=== PATIENT | female | born 1965 | race Caucasian/White ===

== ENCOUNTER → 2016-07-17 | Outpatient (CLI) | payer MEDICARE, OTHER ==
[2016-07-21 03:02] LABS: Creatinine Urine Random 121.5 mg/dL (20.0-320.0)
== END | disposition home or self-care (01) ==
LOC: LABWHC1 12:03
PROVIDERS: ATTEND Internal Medicine Endocrinology, Diabetes & Metabolism
DX: M80.00XA Age-related osteoporosis with current pathological fracture, unspecified site, initial encounter for fracture (principal)
CPT/HCPCS: 36415; 82523

== ENCOUNTER → 2016-07-22 | Outpatient (CLI) | payer MEDICARE, OTHER ==
[2016-08-03 10:55] LABS: Mis test requested (Blood) CTX
== END | disposition home or self-care (01) ==
LOC: LABWHC1 10:52
PROVIDERS: ATTEND Internal Medicine Endocrinology, Diabetes & Metabolism
DX: M80.00XA Age-related osteoporosis with current pathological fracture, unspecified site, initial encounter for fracture (principal)
CPT/HCPCS: 36415; 82523

== ENCOUNTER → 2016-11-30 | Outpatient (CLI) | payer MEDICARE, OTHER ==
[2016-12-01 14:22] LABS: Mis test requested (Blood) CTX
[2016-12-03 21:53] LABS: Creatinine Urine Random 71.7 mg/dL (20.0-320.0)
== END | disposition home or self-care (01) ==
LOC: LABWHC1 09:34
PROVIDERS: ATTEND Internal Medicine Endocrinology, Diabetes & Metabolism
DX: M80.00XA Age-related osteoporosis with current pathological fracture, unspecified site, initial encounter for fracture (principal)
CPT/HCPCS: 36415; 82523

== ENCOUNTER → 2018-04-04 | Outpatient (CLI) | payer MEDICARE, OTHER ==
[2018-04-04 14:45] LABS: ALT 21 U/L (9-52); AST 21 U/L (14-36); Cholesterol 256 mg/dL (<200); HDL Cholesterol 68 mg/dL (40-60); LDL Cholesterol,Calculated 162 mg/dL (0-99); Triglycerides 128 mg/dL (<150)
== END | disposition home or self-care (01) ==
LOC: LABWHC1 13:02
PROVIDERS: ATTEND Nurse Practitioner Adult Health
DX: E78.2 Mixed hyperlipidemia (principal)
CPT/HCPCS: 36415; 80061; 84450; 84460

== ENCOUNTER → 2018-04-15 | Outpatient (CLI) | payer MEDICARE, OTHER ==
--- NOTE | 2018-04-15 16:18 | XR ---
EXAMINATION TYPE: XR chest 2V DATE OF EXAM: 04/15/2018 COMPARISON: 04/03/2018 HISTORY: COPD. Recent history of bronchitis. Concern for pneumonia. Shortness of breath. TECHNIQUE: Frontal and lateral views of the chest are obtained. FINDINGS: There is no focal air space opacity, pleural effusion, or pneumothorax seen. The cardiac silhouette size is within normal limits. Old healed right posterior mid rib fracture and left sided m id rib fractures that are also callus*seen. There is pulmonary hyperinflation and flattening of the d iaphragms on the lateral view. IMPRESSION: No acute cardiopulmonary process. Radiographic sequela of COPD.
== END | disposition home or self-care (01) ==
LOC: RADXRMAIN 15:48
DX: J44.1 Chronic obstructive pulmonary disease with (acute) exacerbation (principal)
CPT/HCPCS: 71046

== ENCOUNTER → 2019-06-03 | Outpatient (CLI) | payer MEDICARE, OTHER | END | disposition home or self-care (01) | LOC: CPPFTMAIN 12:59 | PROVIDERS: ATTEND Internal Medicine Critical Care Medicine | DX: J43.8 Other emphysema (principal) | CPT/HCPCS: 94060; 94726; 94729 ==

== ENCOUNTER → 2021-10-26 | Outpatient (CLI) | payer MEDICARE, OTHER ==
--- NOTE | 2021-10-27 06:58 | CT ---
EXAMINATION TYPE: CT chest wo con DATE OF EXAM: 10/26/2021 COMPARISON: CT chest abdomen and pelvis August 08, 2013 HISTORY: h/o SOB, COPD, COVID CT DLP: 405.5 mGycm. Automated Exposure Control for Dose Reduction was Utilized. TECHNIQUE: CT scan of the thorax is performed without IV contrast. High resolution protocol with 1 m m sequences obtained in 10 mm intervals in supine and prone technique. FINDINGS: LUNGS: Moderate underlying emphysematous changes redemonstrated greatest in the upper lungs with inte rval progression from [address] No significant peripheral fibrotic change or reticulation bilatera lly. No pleural effusion or pneumothorax seen. No bronchiectasis. No large masses. MEDIASTINUM: Lack of IV contrast and technique are noted to limit evaluation for mediastinal and abhishek cially hilar adenopathy. There are no definitive greater than 1 cm mediastinal lymph nodes. No car diomegaly . Trace pericardial effusion redemonstrated. OTHER: No additional significant abnormality is seen. IMPRESSION: Moderate underlying emphysematous change with some progression from 2014 study. No signif icant fibrosis. No acute pulmonary process.
== END | disposition home or self-care (01) ==
LOC: RADCTMAIN 18:05
PROVIDERS: ATTEND Internal Medicine Critical Care Medicine
DX: J43.9 Emphysema, unspecified (principal)
CPT/HCPCS: 71250

== ENCOUNTER → 2021-10-27 | Outpatient (CLI) | payer MEDICARE, OTHER ==
[2021-10-27 17:18] LABS: ABG Base Excess 3.1 mmol/L; ABG HCO3 28 mmol/L (21-25); ABG Oxygen Saturation 94.7 % (94-97); ABG PCO2 44 mmHg (35-45); ABG PH 7.41 (7.35-7.45); ABG PO2 81 mmHg (83-108); ABG TCO2 29 mmol/L (19-24); Allen Test Performed? Yes
== END | disposition home or self-care (01) ==
LOC: LABWHC1 16:27
PROVIDERS: ATTEND Internal Medicine Critical Care Medicine
DX: J44.9 Chronic obstructive pulmonary disease, unspecified (principal)
CPT/HCPCS: 36600; 82805

== ENCOUNTER → 2021-12-05 | Outpatient (CLI) | payer MEDICARE, OTHER ==
--- NOTE | 2021-12-06 17:36 | CA ---
Transthoracic Echo Report Name: Zahra Emmanuel Age: 56 Gender: F : 1965 Exam Date: 12/05/2021 13:50 Exam Location: [facility] Ht (in): 66 Wt (lb): 140 Ordering Physician: Tima Pink DO Attending/Referring Phys: Health Services Administrator Jenny Leahy RDCS Procedure CPT: Indications: J44.9 COPD Cardiac Hx: Severe end stage COPD Technical Quality: Fair Contrast 1: Total Dose (mL): Contrast 2: Total Dose (mL): MEASUREMENTS (Male / Female) Normal Values 2D ECHO LV Diastolic Diameter PLAX 3.7 cm 4.2 - 5.9 / 3.9 - 5.3 cm LV Systolic Diameter PLAX 1.5 cm IVS Diastolic Thickness 0.9 cm 0.6 - 1.0 / 0.6 - 0.9 cm LVPW Diastolic Thickness 1.0 cm 0.6 - 1.0 / 0.6 - 0.9 cm LV Relative Wall Thickness 0.5 RV Internal Dim ED PLAX 2.1 cm M-MODE Aortic Root Diameter MM 2.7 cm LA Systolic Diameter MM 2.5 cm LA Ao Ratio MM 0.9 MV E Point Septal Separation 1.9 cm AV Cusp Separation MM 1.6 cm DOPPLER AV Peak Velocity 93.9 cm/s AV Peak Gradient 3.5 mmHg MV Area PHT 3.5 cm??? MR Peak Velocity 120.6 cm/s MR Peak Gradient 5.8 mmHg Mitral E Point Velocity 51.8 cm/s Mitral A Point Velocity 48.6 cm/s Mitral E to A Ratio 1.1 MV Deceleration Time 217.2 ms TR Peak Velocity 97.3 cm/s TR Peak Gradient 3.8 mmHg Right Ventricular Systolic Press 8.8 mmHg FINDINGS Left Ventricle Normal Left ventricular size, wall thickness, systolic function with no obvious regional wall motion abnormalities. Normal Left ventricular diastolic filling pattern. Left ventricular ejection fraction is estimated at 50-55 %. Right Ventricle The right ventricle is normal in size and function. Right Atrium The right atrium is normal in size. Left Atrium The left atrium is normal in size. Mitral Valve Structurally normal mitral valve without significant stenosis or prolapse. There is trace mitral regurgitation. Aortic Valve Aortic valve not well visualized. Tricuspid Valve Structurally normal tricuspid valve without significant stenosis. Pulmonary artery systolic pressure is normal. Trace tricuspid regurgitation. Pulmonic Valve Structurally normal pulmonic valve without significant stenosis. There is no pulmonic regurgitation. Pericardium Small echo free space possible fat pad or a trivial effusion Aorta Normal aortic root dimension. CONCLUSIONS Normal LV size and systolic function. I aortic valve is not well-seen. No significant abnormality on Doppler exam. Previewed by: Dr. Espinoza Cobb MD (Electronically Signed) Final Date: 06 December 2021 17:35
== END | disposition home or self-care (01) ==
LOC: RADECHMAIN 13:44
PROVIDERS: ATTEND Internal Medicine Critical Care Medicine
DX: I08.1 Rheumatic disorders of both mitral and tricuspid valves (principal)
CPT/HCPCS: 93306

== ENCOUNTER → 2021-12-19 | Outpatient (CLI) | payer MEDICARE, OTHER ==
--- NOTE | 2021-12-20 00:27 | CT ---
EXAMINATION TYPE: CT chest wo con DATE OF EXAM: 12/19/2021 INDICATION: h/o COPD, zephyr protocol CT DLP: 440.7 mGy.cm Automated Exposure Control for Dose Reduction was Utilized. TECHNIQUE AND CONTRAST: CT scan of the chest without IV contrast administration, in inspiration and expiration. COMPARISON: CT dated 10/26/2021 FINDINGS: Advanced COPD changes with centrilobular emphysematous changes mainly involving the upper lobes. Diff use bronchial thickening which could be related to chronic bronchitis. Bilateral apical pulmonary fib rotic changes. Bronchial impaction is seen in the right lower lobe posterior segment. 3 mm right upper lobe nodule (image #[id number], series 4), stable since 2014 CT scan consistent with benign nodule. Minimal scarring at the posterior aspect of the right lower lobe superior segment. No honeyc ombing, bronchiectasis or peripheral pulmonary reticulations. Patent trachea and main bronchi. No pleural or pericardial effusion. No cardiomegaly. Scattered arter ial atherosclerotic calcifications. No pathologically enlarged lymph nodes in the chest. Grossly unre markable upper abdomen. No aggressive bone lesion. IMPRESSION: COPD changes as detailed above. No significant pulmonary fibrosis, bronchiectasis, honeycombing or pe ripheral reticulations. Other findings as described above.
== END | disposition home or self-care (01) ==
LOC: RADCTMAIN 11:39
PROVIDERS: ATTEND Internal Medicine Critical Care Medicine
DX: J44.9 Chronic obstructive pulmonary disease, unspecified (principal)
CPT/HCPCS: 71250

== ENCOUNTER → 2022-11-08 | Outpatient (CLI) | payer MEDICARE, OTHER ==
[2022-11-08 15:05] LABS: Basophils # (A) 0.07 X 10*3/uL (0.00-0.10); Eosinophils # (A) 0.15 X 10*3/uL (0.04-0.35); Eosinophils % (A) 2.1 %; HCT 39.2 % (37.2-46.3); HGB 12.2 g/dL (12.0-15.0); Immature Grans, Automated 0.1 %; Lymphocytes # (A) 2.59 X 10*3/uL (0.90-5.00); Lymphocytes % (A) 36.2 %; MCHC 31.1 g/dL (32.0-37.0); MCV 86.7 fL (80.0-97.0); Mean Platelet Volume 9.9 fL (9.5-12.2); Monocytes % (A) 11.2 %; NRBC Per 100 WBC 0 /100 WBCS (0.0-0.0); Neutrophils # (A) 3.53 X 10*3/uL (1.80-7.70); Neutrophils % (A) 49.4 %; Platelet Count 377 X 10*3/uL (140-440); RBC 4.52 X 10*6/uL (4.10-5.20); RDW 12.2 % (11.5-14.5); WBC 7.15 X 10*3/uL (4.50-10.00)
[2022-11-08 15:54] LABS: ALT 16 U/L (8-44); AST 18 U/L (13-35); African American GFR (CKD) 112.3 (60.0-200.0); Albumin 4.2 g/dL (3.8-4.9); Albumin/Globulin Ratio 1.75 (1.60-3.17); Alkaline Phosphatase 114 U/L (41-126); BUN/Creat Ratio 11.71 Ratio (12.00-20.00); Blood Urea Nitrogen 8.2 mg/dL (9.0-27.0); Calcium 9.1 mg/dL (8.7-10.3); Carbon Dioxide 25.1 mmol/L (20.0-27.5); Chloride 95 mmol/L (96-109); Chol/HDL Ratio 3.49 Ratio; Globulin 2.4 g/dL (1.6-3.3); Glucose 92 mg/dL (70-110); LDL Cholesterol,Calculated 163.6 mg/dL (0.0-131.0); Magnesium 2.2 mg/dL (1.5-2.4); Non-African American GFR(CKD) 96.9 (60.0-200.0); Potassium 4.7 mmol/L (3.5-5.5); Sodium 129 mmol/L (135-145); Total Bilirubin <0.15 mg/dL (0.30-1.20); Total Protein 6.6 g/dL (6.2-8.2)
== END | disposition home or self-care (01) ==
LOC: LABWHC1 09:36
PROVIDERS: ATTEND Nurse Practitioner Adult Health
DX: I10 Essential (primary) hypertension (principal); E78.5 Hyperlipidemia, unspecified; I47.29 Other ventricular tachycardia; R55 Syncope and collapse
CPT/HCPCS: 36415; 80053; 80061; 83036; 83735; 84443; 85025

== ENCOUNTER 2022-12-01 17:00 | Inpatient (IN) | payer MEDICARE, OTHER ==
[2022-12-01] MEDS ORDERED: SODIUM CHLORIDE 0.9% 1,000 ML IV STA (17:10)
[2022-12-01 17:40] LABS: Basophils % (A) 1 %; Eosinophils # (A) 0.1 k/uL (0-0.7); Eosinophils % (A) 1 %; HCT 36.7 % (34.0-46.0); HGB 12.4 gm/dL (11.4-16.0); Lymphocytes # (A) 1.8 k/uL (1.0-4.8); Lymphocytes % (A) 26 %; MCHC 33.9 g/dL (31.0-37.0); MCV 82.5 fL (80.0-100.0); Mean Platelet Volume 7.3; Monocytes # (A) 0.5 k/uL (0-1.0); Monocytes % (A) 7 %; Neutrophils # (A) 4.3 k/uL (1.3-7.7); Neutrophils % (A) 63 %; Platelet Count 337 k/uL (150-450); RBC 4.45 m/uL (3.80-5.40); RDW 12.3 % (11.5-15.5); WBC 6.8 k/uL (3.8-10.6)
--- NOTE | 2022-12-01 17:46 | ED ---
Recheck HPI - General Chief Complaint: Recheck/Abnormal Lab/Rx Stated Complaint: ENZO Time Seen by Provider: 12/01/22 17:10 Source: patient, RN notes reviewed, old records reviewed Mode of arrival: ambulatory Limitations: no limitations - History of Present Illness Initial Comments: This is a 57-year-old female to the emergency department for evaluation. Patient presents today for evaluation regards to low sodium. History of low sodium, outpatient lab showing sodium 126 prior to arrival patient feels short of breath weak and unwell. No new symptoms this is been ongoing for a few months. Symptoms began after stopping her daily steroid use. Patient also admits to shortness of breath and cough with underlying COPD at baseline MD Complaint: abnormal lab (Low sodium) -: unknown Returns Today for: Called Because of Abnormal Lab/Test Symptoms Since Prior Visit: no new symptoms Associated Symptoms: none Treatments Prior to Arrival: other (0) - Related Data Home Medications Medication Instructions Recorded Confirmed OXcarbazepine [Trileptal] 150 mg PO BID 01/26/16 12/01/22 traZODone HCL [Desyrel] 200 mg PO HS 01/26/16 12/01/22 Albuterol Inhaler [Ventolin Hfa 2 puff INHALATION RT-Q6H PRN 12/01/22 12/01/22 Inhaler] Cyclobenzaprine [Flexeril] 10 mg PO TID PRN 12/01/22 12/01/22 Fluticasone/Vilanterol [Breo 1 puff INHALATION RT-HS 12/01/22 12/01/22 Ellipta 200-25 Mcg Inhaler] HYDROcodone/APAP 10-325MG [[place] 1 tab PO TID PRN 12/01/22 12/01/22 10-325] Ipratropium [place] [Atrovent Hfa] 2 puff INHALATION RT-BID 12/01/22 12/01/22 Meloxicam [Mobic] 15 mg PO DAILY 12/01/22 12/01/22 Rosuvastatin [Crestor] 10 mg PO HS 12/01/22 12/01/22 hydrOXYzine pamoate 100 mg PO HS 12/01/22 12/01/22 Allergies Allergy/AdvReac Type Severity Reaction Status Date / Time ketorolac tromethamine Allergy Anaphylaxis Verified 12/01/22 20:54 [From Toradol] Penicillins Allergy Anaphylaxis Verified 12/01/22 20:54 sumatriptan [From Imitrex] Allergy Anaphylaxis Verified 12/01/22 20:54 sumatriptan succinate Allergy Anaphylaxis Verified 12/01/22 20:54 [From Imitrex] Review of Systems ROS Statement: Those systems with pertinent positive or pertinent negative responses have been documented in the HPI. ROS Other: All systems not noted in ROS Statement are negative. Past Medical History Past Medical History: COPD, Fibromyalgia Additional Past Medical History / Comment(s): HYPOTENSION. CHRONIC LOWER BACK PAIN. LOW SODIUM History of Any Multi-Drug Resistant Organisms: None Reported Past Surgical History: Appendectomy, Section, Hysterectomy Additional Past Surgical History / Comment(s): LAPROSCOPY X 2 (ENDOMETRIOSIS). Past Anesthesia/Blood Transfusion Reactions: No Reported Reaction Past Psychological History: Bipolar, Depression Smoking Status: Current every day smoker Past Alcohol Use History: None Reported Past Drug Use History: Marijuana - Past Family History Mother Family Medical History: Hyperlipidemia General Exam Limitations: no limitations General appearance: alert, in no apparent distress, anxious Head exam: Present: atraumatic, normocephalic, normal inspection Eye exam: Present: normal appearance, PERRL, EOMI. Absent: scleral icterus, conjunctival injection, periorbital swelling ENT exam: Present: normal exam, mucous membranes moist Neck exam: Present: normal inspection. Absent: tenderness, meningismus, lymphadenopathy Respiratory exam: Present: normal lung sounds bilaterally, wheezes, accessory muscle use, decreased breath sounds, prolonged expiratory. Absent: respiratory distress, rales, rhonchi, stridor Cardiovascular Exam: Present: regular rate, normal rhythm, normal heart sounds. Absent: systolic murmur, diastolic murmur, rubs, gallop, clicks GI/Abdominal exam: Present: soft, normal bowel sounds. Absent: distended, tenderness, guarding, rebound, rigid Extremities exam: Present: normal inspection, full ROM, normal capillary refill. Absent: tenderness, pedal edema, joint swelling, calf tenderness Back exam: Present: normal inspection Neurological exam: Present: alert, oriented X3, CN II-XII intact Psychiatric exam: Present: normal affect, normal mood Skin exam: Present: warm, dry, intact, normal color. Absent: rash Course Vital Signs 12/01/22 12/01/22 12/01/22 17:06 17:46 18:53 Temperature 98.2 F 97.6 F Pulse Rate 98 97 91 Respiratory 18 20 18 Rate Blood Pressure 148/95 133/101 112/83 O2 Sat by Pulse 95 98 98 Oximetry 12/01/22 12/01/22 12/02/22 19:59 22:06 01:32 Temperature Pulse Rate 74 80 75 Respiratory 18 18 18 Rate Blood Pressure 128/86 122/87 112/72 O2 Sat by Pulse 99 98 98 Oximetry 12/02/22 03:21 Temperature Pulse Rate 79 Respiratory 18 Rate Blood Pressure 104/82 O2 Sat by Pulse 100 Oximetry - Reevaluation(s) Reevaluation #1: 12/01/22 18:03 Medical record is reviewed 1 Reevaluation #2: 12/01/22 18:03 Patient symptoms are unchanged Reevaluation #3: 12/01/22 18:03 Patient informed results questions answered Reevaluation #4: 12/01/22 18:03 Was pt. sent in by a medical professional or institution? @ -no Did you speak to anyone other than the patient for history? @ -no Did you review nursing and triage notes? @ -agree Were old charts reviewed? @ -no Differential Diagnosis? @ -prior EKG interpreted by me (3pts min.)? @ -no X-rays interpreted by me (1pt min.)? @ -no CT interpreted by me (1pt min.)? @ -no U/S interpreted by me (1pt. min.)? @ -no What testing was considered but not performed? (CT, X-rays, U/S, labs)? Why? @ -no What meds were considered but not given? Why? @ -no Did you discuss the management of the patient with other professionals? @ -no Did you reconcile home meds? @ -no Was smoking cessation discussed for >3mins.? @ -no Was critical care preformed (if so, how long)? @ -no Were there social determinants of health that impacted care today? How? (Homelessness, low income, unemployed, alcoholism, drug addiction, transportation, low edu. Level, literacy, decrease access to med. care, shelter, rehab)? @ -no Was there de-escalation of care discussed even if they declined? (Discuss DNR or withdrawal of care, Hospice)? @ -no What co-morbidities impacted this encounter? (DM, HTN, Smoking, COPD, CAD, Cancer, CVA, Hep., AIDS, mental health diagnosis, sleep apnea, morbid obesity)? @ -none Was patient admitted / discharged? @ -57 female to the emergency department for evaluation, significantly low sodium and no patient. Also underlying COPD. Patient will be admitted for nephrology consultation regarding low sodium breathing treatments as needed. Admitted Undiagnosed new problem with uncertain prognosis? @ -no Drug Therapy requiring intensive monitoring for toxicity (Heparin, Nitro, Insulin, Cardizem)? @ -no Were any procedures done? @ -no Diagnosis/symptom? @ -Hyponatremia Acute, or Chronic, or Acute on Chronic? @ -Acute on chronic Uncomplicated (without systemic symptoms) or Complicated (systemic symptoms)? @ -uncomplicated Side effects of treatment? @ -no Exacerbation, Progression, or Severe Exacerbation] @ -no Poses a threat to life or bodily function? @ -Yes Significant low sodium Reevaluation #5: 12/01/22 18:03 Differential Weakness: Hypoglycemia, shock, sepsis, hyponatremia, anemia, infection, [place], ETOH, adverse medicine reaction, overdose, stroke, this is not meant to be an all-inclusive list. Medical Decision Making - Medical Decision Making 57 female to the emergency department for evaluation, significantly low sodium and no patient. Also underlying COPD. Patient will be admitted for nephrology consultation regarding low sodium breathing treatments as needed. - Lab Data Result diagrams: 12/02/22 05:57 12/02/22 04:04 Lab Results 12/01/22 12/01/22 12/01/22 Range/Units 17:26 17:26 17:26 WBC 6.8 (3.8-10.6) k/uL RBC 4.45 (3.80-5.40) m/uL Hgb 12.4 (11.4-16.0) gm/dL Hct 36.7 (34.0-46.0) % MCV 82.5 (80.0-100.0) fL MCH 28.0 (25.0-35.0) pg MCHC 33.9 (31.0-37.0) g/dL RDW 12.3 (11.5-15.5) % Plt Count 337 (150-450) k/uL MPV 7.3 Neutrophils % 63 % Lymphocytes % 26 % Monocytes % 7 % Eosinophils % 1 % Basophils % 1 % Neutrophils # 4.3 (1.3-7.7) k/uL Lymphocytes # 1.8 (1.0-4.8) k/uL Monocytes # 0.5 (0-1.0) k/uL Eosinophils # 0.1 (0-0.7) k/uL Basophils # 0.0 (0-0.2) k/uL Sodium 120 L (137-145) mmol/L Potassium 4.4 (3.5-5.1) mmol/L Chloride 88 L (98-107) mmol/L Carbon Dioxide 22 (22-30) mmol/L Anion Gap 10 mmol/L BUN 7 (7-17) mg/dL Creatinine 0.49 L (0.52-1.04) mg/dL Est GFR (CKD-EPI)AfAm >90 (>60 ml/min/1.73 sqM) Est GFR (CKD-EPI)NonAf >90 (>60 ml/min/1.73 sqM) Glucose 99 (74-99) mg/dL Calcium 8.7 (8.4-10.2) mg/dL Phosphorus 4.4 (2.5-4.5) mg/dL Magnesium 1.9 (1.6-2.3) mg/dL Total Bilirubin 0.3 (0.2-1.3) mg/dL AST 27 (14-36) U/L ALT 22 (4-34) U/L Alkaline Phosphatase 124 (38-126) U/L Total Protein 6.9 (6.3-8.2) g/dL Albumin 4.3 (3.5-5.0) g/dL Urine Color Light Yellow Urine Appearance Clear (Clear) Urine pH 6.0 (5.0-8.0) Ur Specific [place] 1.007 (1.001-1.035) Urine Protein Negative (Negative) Urine Glucose (UA) Negative (Negative) Urine Ketones Negative (Negative) Urine Blood Negative (Negative) Urine Nitrite Negative (Negative) Urine Bilirubin Negative (Negative) Urine Urobilinogen <2.0 (<2.0) mg/dL Ur Leukocyte Esterase Negative (Negative) Critical Care Time Critical Care Time: Yes Total Critical Care Time: 31 Disposition Clinical Impression: Hyponatremia, Weakness, COPD exacerbation Disposition: ADMITTED IP TO THIS HOSP Condition: Serious Is patient prescribed a controlled substance at d/c from ED?: No Time of Disposition: 20:00
[2022-12-01 17:54] LABS: ALT 22 U/L (4-34); AST 27 U/L (14-36); African American GFR (CKD) >90 (>60 ml/min/1.73 sqM); Albumin 4.3 g/dL (3.5-5.0); Alkaline Phosphatase 124 U/L (38-126); Anion Gap 10 mmol/L; Blood Urea Nitrogen 7 mg/dL (7-17); Calcium 8.7 mg/dL (8.4-10.2); Carbon Dioxide 22 mmol/L (22-30); Chloride 88 mmol/L (98-107); Glucose 99 mg/dL (74-99); Magnesium 1.9 mg/dL (1.6-2.3); Non-African American GFR(CKD) >90 (>60 ml/min/1.73 sqM); Phosphorus 4.4 mg/dL (2.5-4.5); Potassium 4.4 mmol/L (3.5-5.1); Sodium 120 mmol/L (137-145); Total Bilirubin 0.3 mg/dL (0.2-1.3); Total Protein 6.9 g/dL (6.3-8.2)
[2022-12-01 18:17] LABS: Appearance,Urine Clear (Clear); Bilirubin,Urine Negative (Negative); Blood,Urine Negative (Negative); Color,Urine Light Yellow; Glucose,Urine (UA) Negative (Negative); Ketones,Urine Negative (Negative); Leukocyte Esterase,Urine Negative (Negative); Nitrite,Urine Negative (Negative); Protein,Urine Negative (Negative); Specific Gravity,Urine 1.007 (1.001-1.035); Urobilinogen,Urine <2.0 mg/dL (<2.0)
[2022-12-01 18:57] VITALS: RESP 18; TEMP 97.6
[2022-12-01] MEDS ORDERED: NALOXONE 0.4 MG/ML 1 ML VIAL IV PRN (20:13)
[2022-12-01] MEDS ORDERED: MORPHINE SULFATE 4 MG/ML SYRINGE IVP STA (20:30)
[2022-12-01] MEDS ORDERED: ONDANSETRON 4 MG/2 ML VIAL IVP STA (20:39)
[2022-12-01 22:06] LABS: Creatinine,Urine Random 6.6 mg/dL
[2022-12-01] MEDS ORDERED: CYCLOBENZAPRINE 10 MG TAB PO PRN (23:30)
[2022-12-01] MEDS ORDERED: HYDROcodone/APAP 10-325MG 1 EACH TAB PO PRN (23:30)
--- NOTE | 2022-12-01 23:32 | P.HPIM ---
History of Present Illness H&P Date: 12/01/22 The patient is a 57-year-old female with a PMH of adrenal insufficiency, COPD, and fibromyalgia who presents to the emergency room for low sodium lab value. The patient reports that her PCP had ordered blood work which revealed a sodium of 126, and he subsequently advised her to go to the emergency room. Patient states that she was diagnosed with chronic hypotension roughly 12 years ago and was started on fludrocortisone. She continues to take as little cortisone until about 8 months ago when it was gradually tapered off after she developed tachycardia. She reports that roughly 1-2 months after halting the foot to cortisone, she began having episodes of syncope as well as periods of not feeling well. She reports that the syncope was occurring almost once weekly, preceded by lightheadedness, lasting for several minutes at a time, and she would have every other day episodes were she would have a sudden onset of nausea and lightheadedness when she would need to lay down, lasting for up to an hour at a time. She reports that these episodes, she would check her blood pressure and it would routinely be low with systolic 80s to 90s. She reports that her syncope symptoms are very similar to when she was previously initiated on fludrocortisone 12 years ago. She reports feeling at her baseline at the time of interview and had no active complaints. Denied experiencing chest discomfort, shortness of breath, palpitations, cough, nausea, vomiting, abdominal pain, diarrhea. In the emergency room, laboratory evaluation revealed a sodium of 120, chloride 88, potassium 4.4, creatinine 0.49. ED documentation reviewed and case discussed with ED provider. Review of systems: Pertinent positives and negatives as discussed in HPI, a complete review of systems was performed and all other systems are negative. Physical examination: Vital signs reviewed General: non toxic, no distress, appears at stated age, normal weight Derm: no unusual rashes/lesions, warm Head: atraumatic, normocephalic, symmetric Eyes: EOMI, no lid lag, anicteric sclera, pupils equal round reactive to light ENT: Nose and ears atraumatic Neck: No cervical lymphadenopathy, trachea midline, supple Mouth: no lip lesion, mucus membranes moist Cardiovascular: S1S2 reg, no murmur, positive dorsalis pedis pulse bilateral, no edema Lungs: CTA bilateral, no rhonchi, no rales, no accessory muscle use Abdominal: soft, nontender to palpation, no guarding Ext: muscle strength 5 out of 5 in all 4 extremities grossly, no gross muscle atrophy, no contractures, Neuro: CN II-XI grossly intact, no gross focal neuro deficits Psych: Alert, oriented, appropriate affect Assessment: Hypochloremic hyponatremia, suspect secondary to adrenal insufficiency (mineralocorticoid) Chronic conditions: COPD, fibromyalgia Imaging: None performed Data Review: In the emergency room, laboratory evaluation revealed a sodium of 120, chloride 88, potassium 4.4, creatinine 0.49. Plan: Obtain hyponatremia workup Status post 1 L of normal saline IV fluid in the emergency room Avoid overcorrection Patient may need to be restarted on fludrocortisone Consult Nephrology Monitor sodium levels q4h DVT prophylaxis: Lovenox The patient is admitted with an anticipated greater than 2 midnight stay for evaluation of hyponatremia CODE STATUS: Full Code Discussed with: Patient Anticipated discharge place: Home Past Medical History Past Medical History: COPD, Fibromyalgia Additional Past Medical History / Comment(s): HYPOTENSION. CHRONIC LOWER BACK PAIN. LOW SODIUM History of Any Multi-Drug Resistant Organisms: None Reported Past Surgical History: Appendectomy, Section, Hysterectomy Additional Past Surgical History / Comment(s): LAPROSCOPY X 2 (ENDOMETRIOSIS). Past Anesthesia/Blood Transfusion Reactions: No Reported Reaction Past Psychological History: Bipolar, Depression Smoking Status: Current every day smoker Past Alcohol Use History: None Reported Past Drug Use History: Marijuana - Past Family History Mother Family Medical History: Hyperlipidemia Medications and Allergies Home Medications Medication Instructions Recorded Confirmed Type OXcarbazepine [Trileptal] 150 mg PO BID 01/26/16 12/01/22 History traZODone HCL [Desyrel] 200 mg PO HS 01/26/16 12/01/22 History Albuterol Inhaler [Ventolin Hfa 2 puff INHALATION RT-Q6H PRN 12/01/22 12/01/22 History Inhaler] Cyclobenzaprine [Flexeril] 10 mg PO TID PRN 12/01/22 12/01/22 History Fluticasone/Vilanterol [Breo 1 puff INHALATION RT-HS 12/01/22 12/01/22 History Ellipta 200-25 Mcg Inhaler] HYDROcodone/APAP 10-325MG [[place] 1 tab PO TID PRN 12/01/22 12/01/22 History 10-325] Ipratropium [place] [Atrovent Hfa] 2 puff INHALATION RT-BID 12/01/22 12/01/22 History Meloxicam [Mobic] 15 mg PO DAILY 12/01/22 12/01/22 History Rosuvastatin [Crestor] 10 mg PO HS 12/01/22 12/01/22 History hydrOXYzine pamoate 100 mg PO HS 12/01/22 12/01/22 History Allergies Allergy/AdvReac Type Severity Reaction Status Date / Time ketorolac tromethamine Allergy Anaphylaxis Verified 12/01/22 20:54 [From Toradol] Penicillins Allergy Anaphylaxis Verified 12/01/22 20:54 sumatriptan [From Imitrex] Allergy Anaphylaxis Verified 12/01/22 20:54 sumatriptan succinate Allergy Anaphylaxis Verified 12/01/22 20:54 [From Imitrex] Physical Exam Vitals: Vital Signs Temp Pulse Resp BP Pulse Ox 12/01/22 22:06 80 18 122/87 98 12/01/22 19:59 74 18 128/86 99 12/01/22 18:53 97.6 F 91 18 112/83 98 12/01/22 17:46 97 20 133/101 98 12/01/22 17:06 98.2 F 98 18 148/95 95 Intake and Output 12/01/22 12/01/22 12/02/22 14:59 22:59 06:59 Other: Weight 56.699 kg Results CBC & Chem 7: 12/01/22 17:26 12/02/22 04:04 Labs: Abnormal Lab Results - Last 24 Hours (Table) 12/01/22 Range/Units 17:26 Sodium 120 L (137-145) mmol/L Chloride 88 L (98-107) mmol/L Creatinine 0.49 L (0.52-1.04) mg/dL
[2022-12-02] MEDS: MORPHINE SULFATE 4 MG/ML SYRINGE IV PRN ×2 (01:05→06:33)
[2022-12-02 01:09] LABS: African American GFR (CKD) >90 (>60 ml/min/1.73 sqM); Anion Gap 8 mmol/L; Blood Urea Nitrogen 5 mg/dL (7-17); Calcium 8.9 mg/dL (8.4-10.2); Carbon Dioxide 28 mmol/L (22-30); Chloride 96 mmol/L (98-107); Glucose 113 mg/dL (74-99); Non-African American GFR(CKD) >90 (>60 ml/min/1.73 sqM); Potassium 4.4 mmol/L (3.5-5.1); Sodium 132 mmol/L (137-145)
[2022-12-02] MEDS ORDERED: ONDANSETRON 4 MG/2 ML VIAL IVP ONE (02:39)
[2022-12-02] MEDS: LORazepam 2 MG/ML INJ IV PRN ×2 (03:17→03:19)
[2022-12-02 03:22] VITALS: BP 104/82; PULSE 79
[2022-12-02 04:50] LABS: ALT 20 U/L (4-34); AST 24 U/L (14-36); African American GFR (CKD) >90 (>60 ml/min/1.73 sqM); Albumin 3.6 g/dL (3.5-5.0); Albumin/Globulin Ratio 1.4; Alkaline Phosphatase 90 U/L (38-126); Anion Gap 5 mmol/L; Blood Urea Nitrogen 6 mg/dL (7-17); Calcium 8.2 mg/dL (8.4-10.2); Carbon Dioxide 28 mmol/L (22-30); Chloride 96 mmol/L (98-107); Globulin 2.5 g/dL; Glucose 115 mg/dL (74-99); Non-African American GFR(CKD) >90 (>60 ml/min/1.73 sqM); Sodium 129 mmol/L (137-145); Total Bilirubin 0.2 mg/dL (0.2-1.3); Total Protein 6.1 g/dL (6.3-8.2)
[2022-12-02 06:51] LABS: Basophils % (A) 0 %; Eosinophils # (A) 0.1 k/uL (0-0.7); Eosinophils % (A) 1 %; HCT 37.3 % (34.0-46.0); HGB 11.8 gm/dL (11.4-16.0); Lymphocytes # (A) 1.9 k/uL (1.0-4.8); Lymphocytes % (A) 31 %; MCH 27.4 pg (25.0-35.0); MCHC 31.7 g/dL (31.0-37.0); MCV 86.3 fL (80.0-100.0); Mean Platelet Volume 7.8; Monocytes # (A) 0.6 k/uL (0-1.0); Monocytes % (A) 10 %; Neutrophils # (A) 3.4 k/uL (1.3-7.7); Neutrophils % (A) 56 %; Platelet Count 320 k/uL (150-450); RBC 4.32 m/uL (3.80-5.40); RDW 12.4 % (11.5-15.5); WBC 6.1 k/uL (3.8-10.6)
[2022-12-02] MEDS ORDERED: SYMBICORT 160-4.5 MCG INHALER INHALATION SCH (08:00)
[2022-12-02] MEDS ORDERED: ENOXAPARIN 40 MG/0.4 ML SYRINGE SQ SCH (09:00)
[2022-12-02] MEDS ORDERED: OXcarbazepine 150 MG TAB PO SCH (09:00)
[2022-12-02] MEDS ORDERED: COSYNTROPIN 0.25 MG VIAL IVP ONE (10:28)
--- NOTE | 2022-12-02 10:32 | P.NPCON ---
History of Present Illness - Reason for Consult hyponatremia - History of Present Illness Reason for consultation: Hyponatremia History of present illness: Patient is a 57-year-old female seen in consultation for hyponatremia. Patient states she had blood work done at her primary care physician's office in sodium level came back at 126 this past Sunday. This was repeated yesterday and was again 126 and she was advised to go to the hospital. In the hospital here sodium initially was 120 and she received 1 L bolus of normal saline. Sodium improved to 132 and this morning was down to 129. Patient states her oral intake has been fair although she doesn't feel very hungry. She denies any vomiting or diarrhea but does admit to nausea. Patient states she was on fludrocortisone for hypotension in the past but was gradually tapered off and the last year due to tachycardia. Blood pressure is fairly stable this admission. Urine osmolality was low at 73 and urine sodium was less than 20. She does admit to drinking about 2-316 ounce bottles of water, 2 cups of coffee and one glass of juice daily. She denies any alcohol use. She denies any personal history of malignancy. Patient does admit to taking Mobic every day. Additionally she is also on trazodone and Trileptal. Vital signs are stable. General: No acute distress. HEENT: Head exam is unremarkable. LUNGS: No audible rhonchi or wheezes. HEART: Rate and Rhythm are regular. ABDOMEN: Nontender. EXTREMITITES: No edema. Past Medical History Past Medical History: COPD, Fibromyalgia Additional Past Medical History / Comment(s): HYPOTENSION. CHRONIC LOWER BACK PAIN. LOW SODIUM History of Any Multi-Drug Resistant Organisms: None Reported Past Surgical History: Appendectomy, Section, Hysterectomy Additional Past Surgical History / Comment(s): LAPROSCOPY X 2 (ENDOMETRIOSIS). Past Anesthesia/Blood Transfusion Reactions: No Reported Reaction Past Psychological History: Bipolar, Depression Smoking Status: Current every day smoker Past Alcohol Use History: None Reported Past Drug Use History: Marijuana - Past Family History Mother Family Medical History: Hyperlipidemia Medications and Allergies Home Medications Medication Instructions Recorded Confirmed Type OXcarbazepine [Trileptal] 150 mg PO BID 01/26/16 12/01/22 History traZODone HCL [Desyrel] 200 mg PO HS 01/26/16 12/01/22 History Albuterol Inhaler [Ventolin Hfa 2 puff INHALATION RT-Q6H PRN 12/01/22 12/01/22 History Inhaler] Cyclobenzaprine [Flexeril] 10 mg PO TID PRN 12/01/22 12/01/22 History Fluticasone/Vilanterol [Breo 1 puff INHALATION RT-HS 12/01/22 12/01/22 History Ellipta 200-25 Mcg Inhaler] HYDROcodone/APAP 10-325MG [[place] 1 tab PO TID PRN 12/01/22 12/01/22 History 10-325] Ipratropium [place] [Atrovent Hfa] 2 puff INHALATION RT-BID 12/01/22 12/01/22 History Meloxicam [Mobic] 15 mg PO DAILY 12/01/22 12/01/22 History Rosuvastatin [Crestor] 10 mg PO HS 12/01/22 12/01/22 History hydrOXYzine pamoate 100 mg PO HS 12/01/22 12/01/22 History Allergies Allergy/AdvReac Type Severity Reaction Status Date / Time ketorolac tromethamine Allergy Anaphylaxis Verified 12/01/22 20:54 [From Toradol] Penicillins Allergy Anaphylaxis Verified 12/01/22 20:54 sumatriptan [From Imitrex] Allergy Anaphylaxis Verified 12/01/22 20:54 sumatriptan succinate Allergy Anaphylaxis Verified 12/01/22 20:54 [From Imitrex] Physical Exam Vitals: Vital Signs Temp Pulse Resp BP Pulse Ox 12/02/22 03:21 79 18 104/82 100 12/02/22 01:32 75 18 112/72 98 12/01/22 22:06 80 18 122/87 98 12/01/22 19:59 74 18 128/86 99 12/01/22 18:53 97.6 F 91 18 112/83 98 12/01/22 17:46 97 20 133/101 98 12/01/22 17:06 98.2 F 98 18 148/95 95 Intake and Output 12/01/22 12/02/22 12/02/22 22:59 06:59 14:59 Other: Weight 56.699 kg Results - Lab Results Most recent lab results Calcium 8.2 mg/dL (8.4-10.2) L 12/02/22 04:04 Phosphorus 4.4 mg/dL (2.5-4.5) 12/01/22 17:26 Magnesium 1.9 mg/dL (1.6-2.3) 12/01/22 17:26 12/02/22 05:57 12/02/22 04:04 Assessment and Plan Plan: Assessment: 1. Hyponatremia from poor solute intake and excessive fluid intake. Urine sodium less than 20 and urine osmolality 73. Also concern for adrenal insufficiency as her cortisol level is low at 2. Additionally patient takes [place], Trileptal as well as trazodone which can also induce hyponatremia/SIADH. Plan: Check cosyntropin stimulation test. Start Cortef after cosyntropin stimulation test completed. Patient will need to follow-up with endocrinology outpatient. Consider alternatives to medications that can induce SIADH. Check TSH. Add 1500 mL fluid restriction. Thank you for the consultation. I will continue to follow the patient with you during her hospital stay.
--- NOTE | 2022-12-02 11:30 | P.DS ---
Providers Date of admission: 12/01/22 20:13 Expected date of discharge: 12/02/22 Attending physician: Josemanuel Vo MD Consults: 12/01/22 23:29 Consult Physician Urgent Consulting Provider: Lio Kinney Consult Reason/Comments: hyponatremia Do you want consulting provider notified?: Yes Primary care physician: Lucas Alcantara DO Hospital Course: AMA Note: Patient was not seen by me prior to signing out AMA. The patient is a 57-year-old female with a PMH of adrenal insufficiency, COPD, and fibromyalgia who presents to the emergency room for low sodium lab value. The patient reports that her PCP had ordered blood work which revealed a sodium of 126, and he subsequently advised her to go to the emergency room. Patient states that she was diagnosed with chronic hypotension roughly 12 years ago and was started on fludrocortisone. She continues to take as little cortisone until about 8 months ago when it was gradually tapered off after she developed tachycardia. She reports that roughly 1-2 months after halting the foot to cortisone, she began having episodes of syncope as well as periods of not feeling well. She reports that the syncope was occurring almost once weekly, preceded by lightheadedness, lasting for several minutes at a time, and she would have every other day episodes were she would have a sudden onset of nausea and lightheadedness when she would need to lay down, lasting for up to an hour at a time. She reports that these episodes, she would check her blood pressure and it would routinely be low with systolic 80s to 90s. She reports that her syncope symptoms are very similar to when she was previously initiated on fludrocortisone 12 years ago. She reports feeling at her baseline at the time of interview and had no active complaints. Denied experiencing chest discomfort, shortness of breath, palpitations, cough, nausea, vomiting, abdominal pain, diarrhea. In the emergency room, laboratory evaluation revealed a sodium of 120, chloride 88, potassium 4.4, creatinine 0.49. ED documentation reviewed and case discussed with ED provider. No physical exam was done. Discharge Diagnosis: Hypochloremic hyponatremia, suspect secondary to adrenal insufficiency (mineralocorticoid) Chronic conditions: COPD, fibromyalgia Patient Condition at Discharge: Undetermined Plan - Discharge Summary New Discharge Prescriptions: No Action OXcarbazepine [Trileptal] 150 mg PO BID traZODone HCL [Desyrel] 200 mg PO HS Cyclobenzaprine [Flexeril] 10 mg PO TID PRN PRN Reason: Muscle Pain Rosuvastatin [Crestor] 10 mg PO HS Ipratropium [place] [Atrovent Hfa] 2 puff INHALATION RT-BID HYDROcodone/APAP 10-325MG [[place] 10-325] 1 tab PO TID PRN PRN Reason: Pain Albuterol Inhaler [Ventolin Hfa Inhaler] 2 puff INHALATION RT-Q6H PRN PRN Reason: Shortness Of Breath hydrOXYzine pamoate 100 mg PO HS Fluticasone/Vilanterol [Breo Ellipta 200-25 Mcg Inhaler] 1 puff INHALATION RT-HS Meloxicam [Mobic] 15 mg PO DAILY Discharge Medication List OXcarbazepine [Trileptal] 150 mg PO BID 01/26/16 [History] traZODone HCL [Desyrel] 200 mg PO HS 01/26/16 [History] Albuterol Inhaler [Ventolin Hfa Inhaler] 2 puff INHALATION RT-Q6H PRN 12/01/22 [History] Cyclobenzaprine [Flexeril] 10 mg PO TID PRN 12/01/22 [History] Fluticasone/Vilanterol [Breo Ellipta 200-25 Mcg Inhaler] 1 puff INHALATION RT-HS 12/01/22 [History] HYDROcodone/APAP 10-325MG [[place] 10-325] 1 tab PO TID PRN 12/01/22 [History] Ipratropium [place] [Atrovent Hfa] 2 puff INHALATION RT-BID 12/01/22 [History] Meloxicam [Mobic] 15 mg PO DAILY 12/01/22 [History] Rosuvastatin [Crestor] 10 mg PO HS 12/01/22 [History] hydrOXYzine pamoate 100 mg PO HS 12/01/22 [History] Follow up Appointment(s)/Referral(s): Lucas Alcantara DO [Primary Care Provider] - 1-2 days
[2022-12-02] MEDS ORDERED: HYDROCORTISONE 10 MG TAB PO SCH (21:00)
[2022-12-02] MEDS ORDERED: ATORVASTATIN 20 MG TAB PO SCH (21:00)
[2022-12-02] MEDS ORDERED: traZODone HCL 100 MG TAB PO SCH (21:00)
== END 2022-12-02 10:07 | disposition left against medical advice (07) | DRG 644 ==
LOC: EC 17:00 → 5NMEDONC 20:13
PROVIDERS: ADMIT Internal Medicine; ATTEND Internal Medicine
DX: E22.2 Syndrome of inappropriate secretion of antidiuretic hormone (principal); E27.40 Unspecified adrenocortical insufficiency; I95.89 Other hypotension; E87.8 Other disorders of electrolyte and fluid balance, not elsewhere classified; J44.9 Chronic obstructive pulmonary disease, unspecified; M79.7 Fibromyalgia; F17.210 Nicotine dependence, cigarettes, uncomplicated; N80.9 Endometriosis, unspecified; G89.29 Other chronic pain; M54.50 Low back pain, unspecified; Z53.29 Procedure and treatment not carried out because of patient's decision for other reasons; Z88.0 Allergy status to penicillin; Z88.8 Allergy status to other drugs, medicaments and biological substances; Z88.6 Allergy status to analgesic agent; Z79.1 Long term (current) use of non-steroidal anti-inflammatories (NSAID); Z79.899 Other long term (current) drug therapy
CPT/HCPCS: 36415; 80048; 80053; 81003; 82533; 82570; 83735; 83930; 83935; 84100; 84300; 85025; 96361; 96374; 96375; 96376; 99291